=== PATIENT | female | born 1960 | race Caucasian/White ===

== ENCOUNTER → 2023-11-22 15:17 | Outpatient (REF) | payer OTHER, SELFPAY | LOC: RAD 15:17 | PROVIDERS: ATTENDING PHYSICIAN Psychiatry & Neurology Neurology; FAMILY PHYSICIAN Internal Medicine | DX: R41.3 Other amnesia (principal) | CPT/HCPCS: 93880 ==

== ENCOUNTER → 2024-08-08 06:42 | Outpatient (REF) | payer OTHER, SELFPAY | LOC: RCS 06:42 | PROVIDERS: ATTENDING PHYSICIAN Internal Medicine Cardiovascular Disease; FAMILY PHYSICIAN Internal Medicine | DX: I47.10 Supraventricular tachycardia, unspecified (principal); I65.23 Occlusion and stenosis of bilateral carotid arteries; Z79.899 Other long term (current) drug therapy; R00.2 Palpitations; R07.89 Other chest pain | CPT/HCPCS: 78452; 93017; A9500 ==

== ENCOUNTER → 2024-08-29 10:41 | Outpatient (REF) | payer OTHER, SELFPAY | LOC: WDC 10:41 | PROVIDERS: ATTENDING PHYSICIAN Internal Medicine; REFERRING PHYSICIAN Internal Medicine Cardiovascular Disease | DX: I47.10 Supraventricular tachycardia, unspecified (principal); I65.23 Occlusion and stenosis of bilateral carotid arteries; Z79.899 Other long term (current) drug therapy; R00.2 Palpitations; R07.89 Other chest pain; Z12.31 Encounter for screening mammogram for malignant neoplasm of breast | CPT/HCPCS: 77080; 93306 ==

== ENCOUNTER → 2024-09-12 08:32 | Outpatient (REF) | payer OTHER, SELFPAY | LOC: WDC 08:32 | PROVIDERS: ATTENDING PHYSICIAN Internal Medicine | DX: R92.8 Other abnormal and inconclusive findings on diagnostic imaging of breast (principal) | CPT/HCPCS: 76642 ==

== ENCOUNTER 2025-02-09 09:59 | Day surgery (SDC) | payer OTHER, SELFPAY ==
[2025-02-02 09:52] VITALS: BMI 22.8
--- NOTE | 2025-02-02 10:16 | HPS.HSE ---
Family Physician
-
Family Physician: Nemesio Jordan
Chief Complaint
-
Supraventricular tachycardia.
History of Present Illness
The patient is a 64 year old female presenting today for supraventricular tachycardia. She reports frequent palpitations associated with this diagnosis. These palpitations occur daily for about 20-40 minutes. She previously underwent two
ablations in 2000 and 2005 for right atrial tachycardia. Her arrhythmia, however, was overall difficult to eliminate through ablation given its close proximity to the phrenic nerve. She is on current pharmacological therapy with Diltiazem and
Flecainide. She notes that her palpitations associated with her arrhythmia greatly interfere with her activities of daily living and overall impact her quality of life. She is interested in pursuing with an EP study and SVT ablation for further
arrhythmia management. Given new technology over the last several years, she likely would benefit from an updated ablation. She denies any current complaints today such as chest pain, shortness of breath, nausea, vomiting, diarrhea, lightheadedness,
dizziness, cough, sore throat, or fever.
Medical History
Past Medical History
Past Medical History: Reports Other
Additional Past Medical History:
1. Supraventricular tachycardia, pharmacological therapy with Flecainide and Diltiazem.
2. Right atrial tachycardia, status post ablation 2000 and 2005.
3. Hypertension with history of hypertensive urgency 1999.
4. Hypercholesterolemia.
5. Non-obstructive bilateral carotid atherosclerosis.
6. Mild mitral regurgitation.
7. Hemorrhoids.
8. Lumbar degenerative disc disease.
9. Osteopenia.
10. Anxiety/depression.
11. History of tobacco abuse.
Past Surgical History: Reports Other
Additional Past Surgical History:
1. Right atrial tachycardia ablation x2.
2. Lumbar discectomy and fusion.
3. Bilateral carpal tunnel release.
4. Bilateral bunionectomy.
5. Hysterectomy.
6. Hysteroscopy, endometrial ablation.
7. Hysteroscopy, D&C.
8. Right breast biopsy (benign).
9. Fissurectomy.
10. Colonoscopy x2.
Social History
Tobacco: Former Smoker (She is a former 'few' cigarette per day smoker who quit tobacco products altogether a 'few years ago.')
Alcohol: Other (Social use reported. )
Personal:
Living: Other (She lives with her spouse in a 2 story home. )
Family History
Family History: Not pertinent
Allergies / Home Medications
Allergy/Medication List:
Home medications:
1. Aspirin 81 mg p.o. daily.
2. Atorvastatin 20 mg p.o. daily.
3. Bupropion 150 mg p.o. daily.
4. Cholecalciferol 50 mcg p.o. daily.
5. Diltiazem HCl 30 mg p.o. twice a day.
6. Estradiol 1 patch transdermal on Sundays.
7. Flecainide 50 mg p.o. every 12 hours.
8. Multivitamin 1 tablet p.o. daily.
9. Progesterone 200 mg p.o. daily.
Allergies: Shellfish.
Review of Systems
-
A 12 point ROS was completed and negative except as noted: Yes
Physical Exam
Vital Signs
Blood pressure 139/86. Heart rate 63. Respirations 18. Pulse ox 99% on room air.
Height 5 feet, 5 inches. Weight 62.2 kg. BMI 22.8.
Physical Exam
General: Well Developed, Well Nourished and No Apparent Distress
HEENT: NormoCephalic, Moist mucous membranes, Atraumatic and PERRLA
Respiratory: Clear
Cardiac: Regular Rhythm
GI: Soft, Non Tender and Non Distended
Musculoskeletal: No Edema and Normal Gait & Station
Skin: Warm and Dry
Neuro: AO x 3 and Nonfocal/grossly intact
Laboratory Results
-
DIAGNOSTIC STUDIES as of 02/02/2025: White blood cell count 7.1. Hemoglobin 13.8. Platelet count 333,000. Sodium 143. Potassium 4.2. BUN 14. Creatinine 0.7.
Glucose 95. Calcium 9.6. Magnesium 2.0. AST 26. ALT 23. Albumin 4.4.
EKG 02/02/2025: Sinus bradycardia.
Echocardiogram 08/29/2024: Ejection fraction of 65-70%. Mild mitral regurgitation. Trace tricuspid regurgitation with estimated pulmonary artery systolic pressures of 25-30 mmHg. No prior echocardiogram for comparison.
Stress test 08/08/2024: Normal sestamibi perfusion imaging. No evidence of ischemia The exercise tolerance is above average for given age and gender. Stress Risk is low, annual cardiac event rate less then 1%. (Cross Treadmill Score = 10). Systolic
function is normal. The ejection fraction is 71%.
Impression/Plan
-
IMPRESSION/PLAN:
1. Supraventricular tachycardia: The patient is in need of an EP study and SVT ablation with Dr. Sachin Hope on 02/09/2025. The benefits and risks of the procedure have been explained to the patient. The patient understands these risks and
wishes to proceed. She is aware to hold her Flecainide and Diltiazem 3 days prior to her procedure.
[2025-02-02 10:17] LABS: % Basophils 0.6 % (0-2); % Eosinophils 0.8 % (0-6); % Immature Granulocytes 0.3 % (0-0.5); % Lymphocytes 25.1 % (20.5-51.1); % Monocytes 6.1 % (1.7-9.3); % Neutrophils 67.1 % (42.2-75.2); Absolute Eosinophils 0.1 10^3/uL (0-0.7); Absolute Lymphocytes 1.8 10^3/uL (1.2-3.4); Absolute Monocytes 0.4 10^3/uL (0.1-0.6); Absolute Neutrophils 4.8 10^3/uL (1.4-6.5); Hematocrit 41.5 % (37.0-47.0); Hemoglobin 13.8 g/dL (12.0-16.0); Mean Corp Hgb Conc. 33.3 g/dL (33.0-37.0); Mean Corpuscular Hgb 29.7 pg (27.0-31.0); Mean Corpuscular Volume 89.2 fL (81.0-99.0); Mean Platelet Volume 9.9 fL (7.4-10.4); Nucleated Red Blood Cells % 0 %; Platelet Count 333 10^3/uL (130-400); Red Blood Cell Count 4.65 10^6/uL (4.20-5.40); Red Cell Dist. Width 13.3 % (11.5-14.5); White Blood Cell Count 7.1 10^3/uL (4.8-10.8)
[2025-02-02 10:53] LABS: ALT (SGPT) 23 U/L (0-35); AST (SGOT) 26 U/L (14-36); Albumin 4.4 g/dl (3.5-5.0); Alkaline Phosphatase 45 U/L (38-126); Blood Urea Nitrogen 14 mg/dl (7-17); Calcium 9.6 mg/dl (8.4-10.2); Carbon Dioxide 27 mmol/L (22-30); Chloride 107 mmol/L (98-107); Estimated Creatinine Clearance 74 ml/min; Glucose 95 mg/dl (70-99); Potassium 4.2 mmol/L (3.5-5.1); Sodium 143 mmol/L (135-145); Total Bilirubin 0.8 mg/dl (0.2-1.3); Total Protein 6.7 g/dl (6.3-8.2); eGFR > 60.00
[2025-02-09] VITALS (15 sets, daily range): BP systolic 102–167; BP diastolic 77–90; BMI 23.4
--- NOTE | 2025-02-09 13:54 | ITS.CL.ABL ---
Granite Sandblaster Apprentice - Ablation
Ablation
Procedure Report:
ELECTROPHYSIOLOGIC STUDY AND POSSIBLE ABLATION
DATE: February 09, 2025
Primary Care Provider: Dr. Nemesio Jordan
INDICATION:
Symptomatic recurrent SVT (atrial tachycardia)
Paroxysmal
HISTORY: See H and P.
Symptomatic SVT (Atrial Tachycardia), poorly controlled with prior ablation attempts as well as attempted medical therapy (Cardizem CD as well as flecainide).
She initially was seen at [place] in 2000 and underwent EP study which was notable for atypical AVNRT however Ablation was unsuccessful. Beta-haseeb led to fatigue and did not resolve her symptoms. Patient was placed on flecainide.
Due to ongoing symptoms she underwent EP study here at [place] 08/2005. EPS demonstrated a right atrial tachycardia from the donta terminalis in very close proximity to the phrenic nerve. This limited RF energy applications and she quickly
recurred with her atrial tachycardia. We discussed moving forward with pulsed electric field energy which carries a very low risk of phrenic nerve injury.�
PRESENTING RHYTHM: SR
HISTORY: See H and P.
Symptomatic AF, poorly controlled with attempted medical therapy.
ANTIARRHYTHMIC DRUG: Flecainide 50 mg twice daily and Cardizem HCl 30 mg twice daily
'TIME-OUT': called and confirmed.
SEDATION/ANESTHESIA: provided via the anesthesia department using general anesthesia.
PROCEDURE:
Ultrasound Guidance with real-time visualization of needle insertion and vessel patency performed by al for femoral venous Vascular Access.
Under real-time US guidance, the needle was advanced with negative pressure into the vein. The needle was seen entering the vessel lumen with a good return of dark red flow, the syringe was removed, non-pulsatile, dark red blood low was noted and
the wire was passed without difficulty, then the needle was removed. US confirmed the wire was in the vein, not going into an artery,
Images were taken and saved for the patient's permanent record. Imaging findings typical femoral venous anatomy. Direct visualization of needle puncture into the femoral vein was observed and recorded.
A decapolar CS catheter was placed within the CS for mapping and pacing.
Heparin bolus and infusion to target ACT at 300 -350 seconds was administered.
The Affera multipolar mapping/ablation Sphere-9 catheter was positioned through the Agilis deflectable sheath
Sinus rhythm mapping was performed. Additionally mapping of short bursts of her clinical atrial tachycardia at cycle length 500 ms was performed. This mapped to the donta terminalis at a mid to high location. Programmed electrical stimulation
failed to induce any sustained arrhythmias.
Isoproterenol infusion was then begun. There were several further spontaneous short runs of atrial tachycardia at a faster cycle length of 480 ms with identical activation sequence which was mapped to the same mid to high donta terminalis
location. At this location pacing captures phrenic nerve.
Pulsed electric field energy was delivered to the target. Several pulsed field energy deliveries in and around the targeted area were given. These all resulted in phrenic nerve capture.
Post ablation programmed electrical stimulation with burst atrial pacing as well as delivery of atrial decremental extrastimuli down to atrial ERP failed to induce any arrhythmias. Additionally there were no longer any spontaneous runs of atrial
tachycardia or even clinical PACs.
Vascade vascular closure devices were used for vascular hemostasis.
COMPLICATIONS:
None
SUMMARY:
- Mapping and ablation of SVT (right atrial donta terminalis tachycardia)
- EPS with coronary sinus catheter/mapping
- EPS with drug infusion
- 3-D Electroanatomical Mapping
- Ultrasound guidance for vascular access
Post ablation, I discussed today's findings and results with the patient's , Darwin
RECOMMENDATIONS:
- Observe in monitored bed.
- Discontinue flecainide, discontinue Cardizem.
- Office visit with me has been scheduled for June 12, 2025
Copy to:
Dr. Nemesio Jordan
[2025-02-09 15:02] LABS: ACT-LR - POC 248 Seconds (116-155)
[2025-02-09 15:21] LABS: ACT-LR - POC 276 Seconds (116-155)
[2025-02-09 15:43] LABS: ACT-LR - POC 289 Seconds (116-155)
--- NOTE | 2025-02-09 18:10 | PTCARENOTE ---
Dr Hope at pt bedside speaking to pt and pt's .
== END 2025-02-09 19:00 | disposition home or self-care (01) ==
LOC: CATH 09:59
PROVIDERS: ATTENDING PHYSICIAN Internal Medicine Cardiovascular Disease; FAMILY PHYSICIAN Internal Medicine; OTHER PHYSICIAN Internal Medicine Cardiovascular Disease
DX: I47.10 Supraventricular tachycardia, unspecified (principal); I10 Essential (primary) hypertension; Z90.710 Acquired absence of both cervix and uterus; Z98.890 Other specified postprocedural states; E78.00 Pure hypercholesterolemia, unspecified; I34.0 Nonrheumatic mitral (valve) insufficiency; K64.9 Unspecified hemorrhoids; M51.369 Other intervertebral disc degeneration, lumbar region without mention of lumbar back pain or lower extremity pain; M85.80 Other specified disorders of bone density and structure, unspecified site; F41.9 Anxiety disorder, unspecified; F32.A Depression, unspecified; Z87.891 Personal history of nicotine dependence; Z79.82 Long term (current) use of aspirin; Z79.899 Other long term (current) drug therapy; Z79.890 Hormone replacement therapy
CPT/HCPCS: C1766; C1730; C1892; C1733; C1894; 36415; 80053; 83735; 85025; 85347; 93005; 93623; 93653; C1760; C1769

== ENCOUNTER 2025-03-08 16:33 | Emergency (ER) | payer OTHER, SELFPAY ==
[2025-03-08 16:35] VITALS: BP 194/110
[2025-03-08 16:58] LABS: % Basophils 0.4 % (0-2); % Eosinophils 1.5 % (0-6); % Immature Granulocytes 0.4 % (0-0.5); % Lymphocytes 27.6 % (20.5-51.1); % Monocytes 8.9 % (1.7-9.3); % Neutrophils 61.2 % (42.2-75.2); Absolute Eosinophils 0.1 10^3/uL (0-0.7); Absolute Lymphocytes 2.6 10^3/uL (1.2-3.4); Absolute Monocytes 0.8 10^3/uL (0.1-0.6); Absolute Neutrophils 5.8 10^3/uL (1.4-6.5); Hematocrit 37.8 % (37.0-47.0); Hemoglobin 12.7 g/dL (12.0-16.0); Mean Corp Hgb Conc. 33.6 g/dL (33.0-37.0); Mean Corpuscular Hgb 29.7 pg (27.0-31.0); Mean Corpuscular Volume 88.5 fL (81.0-99.0); Mean Platelet Volume 10.2 fL (7.4-10.4); Nucleated Red Blood Cells % 0 %; Platelet Count 310 10^3/uL (130-400); Red Blood Cell Count 4.27 10^6/uL (4.20-5.40); Red Cell Dist. Width 13.3 % (11.5-14.5); White Blood Cell Count 9.4 10^3/uL (4.8-10.8)
[2025-03-08 17:09] LABS: ALT (SGPT) 25 U/L (0-35); AST (SGOT) 28 U/L (14-36); Albumin 4.5 g/dl (3.5-5.0); Alkaline Phosphatase 49 U/L (38-126); Blood Urea Nitrogen 16 mg/dl (7-17); Calcium 9.4 mg/dl (8.4-10.2); Carbon Dioxide 27 mmol/L (22-30); Chloride 111 mmol/L (98-107); Glucose 88 mg/dl (70-99); Potassium 3.9 mmol/L (3.5-5.1); Sodium 140 mmol/L (135-145); Total Bilirubin 0.6 mg/dl (0.2-1.3); Total Protein 6.9 g/dl (6.3-8.2); eGFR > 60.00
[2025-03-08 17:21] LABS: Troponin I < 0.012 ng/ml
[2025-03-08 18:52] VITALS: BP 136/88
[2025-03-08 19:00] VITALS: BP 142/81
[2025-03-08 19:27] VITALS: BMI 24.6
--- NOTE | 2025-03-08 20:12 | ED.GENMED ---
History of Present Illness
General
Chief Complaint: Cardiac Symptoms
Time Seen by Provider: 03/08/25 19:01
History of Present Illness
History of Present Illness:
65-year-old female presents emergency department for evaluation of frequent bouts of palpitations tachycardia occurring over the past several days. She is just over 3 weeks status post SVT ablation and has been holding her rate control since that
time. She states the symptoms are comparable to her past bouts of SVT. Reporting mild chest discomfort as well, no shortness of breath or fevers
Past History
Past History
ED Past Medical History: HTN and Hypercholesterolemia
ED Past Surgical History: Gynecological (hysterectomy) and Orthopedic (bunionectomy, back surgery.)
Social History
Tobacco: Non-smoker
Alcohol: Occasional
Drug: None
Personal:
Living: with family
Employment: Employed
Review of Systems
Review of Systems
Allergies reviewed?: Yes
All Other Systems: ROS reviewed and negative except as documented in HPI and ROS
Phy Exam
Physical Exam
Physical Exam:
GEN: Well appearing, NAD, WDWN
HEENT: Oral mucosa moist, no scleral icterus
Cardiac: Regular rate
Lung: No respiratory distress, no tachypnea
MSK: No gross deformity or injuries
Skin: Good color, no pallor or jaundice, no rashes
Neuro: AO x3, moves all extremities freely
Psych: Calm, cooperative
Course
Orders/Labs/Results
Orders:
Orders
03/08/25 16:38
Electrocardiogram (*1) Urgent
Reason for Study: Bradycardia / Tachycardia
EKG- Treatment ONCE
03/08/25 16:49
Complete Blood Count/With Diff Urgent
Comprehensive Metabolic Panel Urgent
Troponin I Urgent
03/08/25 20:11
Diltiazem [Cardizem] 30 mg PO NOW STA
Abnormal Lab Results
03/08/25
16:49
Absolute Monos (auto) 0.8 H 10^3/uL
(0.1-0.6)
Chloride 111 H mmol/L
(98-107)
03/08/25 16:49
03/08/25 16:49
Vital Signs
Initial and Last Documented VS:
Initial Vital Signs
Temp Pulse Resp BP Pulse Ox
98.0 F 119 18 194/110 98
03/08/25 16:35 03/08/25 16:35 03/08/25 16:35 03/08/25 16:35 03/08/25 16:35
Last Documented Vital Signs
Temp Pulse Resp BP Pulse Ox
98.0 F 69 22 142/81 98
03/08/25 16:35 03/08/25 20:15 03/08/25 20:15 03/08/25 19:00 03/08/25 20:15
MDM/Problems Addressed
MDM/Problems Addressed:
Patient noted to be having frequent bouts of PAT on telemetry, discussed with cardiology and will restart her on diltiazem
*Critical Care Note
Total Time (30-74mins, 75-104mins- exclusive of procedures): Not Applicable
ED Attending Note
-
Portions of this chart may have been created with voice recognition software.� Occasional wrong word or��sound alike� substitutions may have occurred due to the inherent limitations of voice recognition software.
Discharge Plan
Departure
Patient Disposition: Home (Routine Discharge)
Date of Disposition: 03/08/25
Time of Disposition: 20:12
Patient with high blood pressure during this ER visit?: No
Discharge Problem:
Atrial paroxysmal tachycardia
Instructions: Tachycardia
Prescriptions:
New
diltiazem HCl 30 mg tablet
30 mg PO BID Qty: 60 0RF
No Action
multivitamin Tablet
1 tab PO DAILY
atorvastatin 20 mg Tablet
20 mg PO DAILY
estradiol 0.05 mg/24 hr Patch Weekly
1 patch TRANSDERMAL WHITE
aspirin 81 mg Tablet
81 mg PO DAILY
bupropion HCl [Wellbutrin XL] 150 mg Tablet Extended Release 24 Hr
150 mg PO DAILY
progesterone micronized 200 mg Capsule
200 mg PO HS
cholecalciferol (vitamin D3) 50 mcg (2,000 unit) Tablet
50 mcg PO DAILY
Referrals:
Nemesio Jordan DO [Family Provider, Internal Medicine]
Karla Hope MD [Active, Cardiology]
Interventions
Interventions:
*Risk Screen - Suicide Last Done: 03/08/25 16:35
*General Assessment Last Done: 03/08/25 19:27
*Neglect/Abuse Screening Last Done: 03/08/25 16:35
*ED- Fall Risk Assessment Last Done: 03/08/25 19:27
*ED COVID-19 Vaccine History Last Done: 03/08/25 19:27
*Nursing Disposition Last Done: 03/08/25 20:45
ED- Pulmonary Assessment Last Done: 03/08/25 19:27
ED- Cardiac Assessment Last Done: 03/08/25 19:27
Discharge Date and Time
Discharge Date/Time: 03/08/25 21:10
Print Language: BRITISH
== END 2025-03-08 21:10 | disposition home or self-care (01) ==
LOC: EMR 16:33
PROVIDERS: EMERGENCY PHYSICIAN Student in an Organized Health Care Education/Training Program; FAMILY PHYSICIAN Internal Medicine
DX: I47.19 Other supraventricular tachycardia (principal); I10 Essential (primary) hypertension; E78.00 Pure hypercholesterolemia, unspecified
CPT/HCPCS: 99284; 80053; 84484; 85025; 93005

== ENCOUNTER 2025-03-18 09:00 | Inpatient (IN) | payer OTHER, SELFPAY ==
[2025-03-18 09:56] VITALS: BP 147/88
--- NOTE | 2025-03-18 10:40 | W.PN.CARDCBS ---
Addendum entered and electronically signed by Kaden Ruggiero DO 03/18/25 17:29:
I saw and examined the patient.
The Privacy Manager's note was reviewed and I agree with the note.
Comment:
Plan:
Direct admit for Sotalol
EP note reviewed from yesterday
Recent echo with preserved EF
Remains on outpt ASA
Original Note:
Today's Communication / Plan
-
Start sotalol 80 mg BID
Impression / Plan
-
PCP: Dr. Jordan
Cardiology: Dr. Karla Hope
EP: Dr. Sachin Hope
Impression:
Direct admission for sotalol loading 03/18/2025
Palpitations
Right atrial tachycardia
EP study at [facility] 2000
EP study at [facility], right atrial tachycardia tracking near the phrenic nerve 2004
HTN
Carotid disease, nonobstructive
Hyperlipidemia
Echo 08/29/2024: EF 65 to 70%, mild MR, no AAS, trace TR
Plan:
- Patient was seen in the office 03/17/2025 for recurrent right atrial tachycardia. Right atrial tachycardia previously studied with EP study at [facility] in 2000 and then most recent EP study was at [facility] in 2004 and it was felt that the right atrial
tachycardia tracked near her phrenic nerve. Patient had increasing palpitations and was seen in the office urgently on 03/17/2025. Patient was taking flecainide and was instructed to stop taking flecainide and made a plan for sotalol 80 mg twice
daily admission starting 03/18/2025.
-All admission orders entered by me. Labs ordered and reviewed by me, stable renal function and electrolytes.
-ECG reviewed by me on admission is read as sinus tachycardia, but might also be her known right atrial tachycardia and then ECG 2 hours after first dose of sotalol also read by me is sinus rhythm with PACs and a QTc is 467 ms
-Reviewed sotalol loading and plans for ECG 2 hours after each dose with patient.
Progress Note - Inhalation Therapy Aide
Subjective
Date of Service: March 18, 2025
She has a headache and feels palpitations
Objective
Vital Signs and I&O:
Vital Signs
Temp Pulse Resp BP Pulse Ox
98.9 F 117 18 147/88 98
03/18/25 09:56 03/18/25 09:56 03/18/25 09:56 03/18/25 09:56 03/18/25 09:56
Vital Signs
Temp Pulse Resp BP Pulse Ox
98.9 F 117 18 147/88 98
03/18/25 09:56 03/18/25 09:56 03/18/25 09:56 03/18/25 09:56 03/18/25 09:56
Physical Exam
Physical Exam
GEN: NAD. AAOx3
HEENT: EOMI, MMM
LUNGS: RA. AAO x3
CV: Atach on tele. Reg, S1/S2, no murmur
ABD: ND
EXT: No edema B/L
NEURO: Gross non-focal
SKIN: No rash
--- NOTE | 2025-03-18 11:02 | CM ---
Patient seen at bedside
IA completed
Lives in 2 story home with , 4 steps to enter, flight to bed/bath
PLOF: independent
Denies DME
Denies VN/Rehab
Denies insecurities
PCP: Nmeesio Jordan
Pharmacy: [facility]
PLAN: Home, no needs anticipated, when medically stable.
[2025-03-18 11:03] VITALS: BMI 23.1
[2025-03-18 11:08] LABS: Hematocrit 41.6 % (37.0-47.0); Hemoglobin 13.9 g/dL (12.0-16.0); Mean Corp Hgb Conc. 33.4 g/dL (33.0-37.0); Mean Corpuscular Volume 89.7 fL (81.0-99.0); Mean Platelet Volume 9.9 fL (7.4-10.4); Platelet Count 287 10^3/uL (130-400); Red Blood Cell Count 4.64 10^6/uL (4.20-5.40); Red Cell Dist. Width 13.6 % (11.5-14.5); White Blood Cell Count 15.8 10^3/uL (4.8-10.8)
[2025-03-18 11:33] LABS: ALT (SGPT) 19 U/L (0-35); AST (SGOT) 23 U/L (14-36); Albumin 4.6 g/dl (3.5-5.0); Alkaline Phosphatase 52 U/L (38-126); Blood Urea Nitrogen 16 mg/dl (7-17); Calcium 9.9 mg/dl (8.4-10.2); Carbon Dioxide 27 mmol/L (22-30); Chloride 108 mmol/L (98-107); Estimated Creatinine Clearance 70 ml/min; Glucose 101 mg/dl (70-99); Magnesium 2.1 mg/dl (1.6-2.3); Potassium 4.7 mmol/L (3.5-5.1); Sodium 141 mmol/L (135-145); Total Bilirubin 0.7 mg/dl (0.2-1.3); Total Protein 7.2 g/dl (6.3-8.2); eGFR > 60.00
[2025-03-18] MEDS: BETAPACE 80 MG PO ×2 (12:33→23:00)
[2025-03-18] MEDS: TYLENOL 650 MG PO ×2 (12:38→20:18)
[2025-03-18 15:27] VITALS: BP 117/62
[2025-03-18] MEDS: LIPITOR PO ×2 (17:13→17:17)
[2025-03-18 19:30] VITALS: BP 143/89
[2025-03-18 23:23] VITALS: BP 128/82
[2025-03-19] VITALS (8 sets, daily range): BP systolic 93–121; BP diastolic 47–76
[2025-03-19] MEDS: TYLENOL 650 MG PO ×2 (01:12→23:46)
[2025-03-19 07:10] LABS: Blood Urea Nitrogen 11 mg/dl (7-17); Calcium 9.5 mg/dl (8.4-10.2); Carbon Dioxide 25 mmol/L (22-30); Chloride 110 mmol/L (98-107); Estimated Creatinine Clearance 70 ml/min; Glucose 95 mg/dl (70-99); Potassium 4.1 mmol/L (3.5-5.1); Sodium 140 mmol/L (135-145); eGFR > 60.00
[2025-03-19] MEDS: LOW STRENGTH ASPIRIN 81 MG PO (07:36)
[2025-03-19] MEDS: WELLBUTRIN XL (24 hour extended release) 150 MG PO (07:36)
[2025-03-19] MEDS: BETAPACE 80 MG PO ×2 (10:33→21:08)
--- NOTE | 2025-03-19 11:40 | CM ---
Patient seen at bedside
Dx: Sotalol loading
PLAN: Home, no needs anticipated, when medically stable.
--- NOTE | 2025-03-19 13:46 | W.PN.CARDCBS ---
Addendum entered and electronically signed by Kaden Ruggiero DO 03/19/25 18:07:
I saw and examined the patient.
The B[employer]er Operators Supervisor's note was reviewed and I agree with the note.
Comment:
Plan:
Continue sotalol load 80 mg twice daily.
Fifth dose tomorrow.
Continue aspirin for Right atrial tachycardia
Likely d/c tomorrow
Follow up with Dr Aaron Hope
Original Note:
Today's Communication / Plan
-
Cont sotalol 80 mg BID
5th dose scheduled for Sunday
Impression / Plan
-
PCP: Dr. Jordan
Cardiology: Dr. Karla Hope
EP: Dr. Sachin Hope
Impression:
Direct admission for sotalol loading 03/18/2025
Spontaneous conversion to SR 03/18/2025 with ongoing breakthrough of right atrial tachycardia
Palpitations
Right atrial tachycardia
EP study at [facility] 2000
EP study at [facility], right atrial tachycardia tracking near the phrenic nerve 2004
HTN
Carotid disease, nonobstructive
Hyperlipidemia
Echo 08/29/2024: EF 65 to 70%, mild MR, no AAS, trace TR
Plan:
-Telemetry reviewed by me, patient spontaneously converted to SR on 03/18/2025, but continues to have frequent breakthroughs of right atrial tachycardia that are symptomatic
-Third dose of sotalol 80 mg BID given 03/19/2025 AM and appears to be NSR with QTc 466 ms
-Fifth dose of sotalol scheduled for 03/20/2025 AM and if patient remains in SR with stable QTc she can be discharged to home
-Patient complains of MILLER that was unresponsive to Tylenol, we will try a dose of Toradol, ordered by me
HPI: Patient was seen in the office 03/17/2025 for recurrent right atrial tachycardia. Right atrial tachycardia previously studied with EP study at [facility] in 2000 and then most recent EP study was at [facility] in 2004 and it was felt that the right atrial
tachycardia tracked near her phrenic nerve. Patient had increasing palpitations and was seen in the office urgently on 03/17/2025. Patient was taking flecainide and was instructed to stop taking flecainide and made a plan for sotalol 80 mg twice
daily admission starting 03/18/2025.
Progress Note - Earth Science Technician
Subjective
Date of Service: March 19, 2025
Has a MILLER, ongoing palpitations
Objective
Labs:
03/18/25 10:59
03/19/25 06:24
Labs
Hgb 13.9 g/dL (12.0-16.0) 03/18/25 10:59
Hct 41.6 % (37.0-47.0) 03/18/25 10:59
Plt Count 287 10^3/uL (130-400) 03/18/25 10:59
Sodium 140 mmol/L (135-145) 03/19/25 06:24
Potassium 4.1 mmol/L (3.5-5.1) 03/19/25 06:24
BUN 11 mg/dl (7-17) 03/19/25 06:24
Creatinine 0.7 mg/dL (0.6-1.0) 03/19/25 06:24
Glucose 95 mg/dl (70-99) 03/19/25 06:24
Vital Signs and I&O:
Vital Signs
Temp Pulse Resp BP Pulse Ox
98.7 F 67 19 121/74 98
03/19/25 11:00 03/19/25 11:00 03/19/25 11:00 03/19/25 11:00 03/19/25 11:00
Vital Signs
Temp Pulse Resp BP Pulse Ox
98.7 F 67 19 121/74 98
03/19/25 11:00 03/19/25 11:00 03/19/25 11:00 03/19/25 11:00 03/19/25 11:00
Intake & Output
03/17/25 03/18/25 03/19/25 03/20/25
06:59 06:59 06:59 06:59
Intake Total 1440 / 1440
Balance 1440 / 1440
Physical Exam
Physical Exam
GEN: NAD. AAOx3
LUNGS: RA.
CV: SR
[2025-03-19] MEDS: TORADOL 15 MG IV (13:54)
[2025-03-19] MEDS: LIPITOR 20 MG PO (17:30)
[2025-03-20 03:32] VITALS: BP 94/61
[2025-03-20 06:51] LABS: Blood Urea Nitrogen 19 mg/dl (7-17); Calcium 9.3 mg/dl (8.4-10.2); Carbon Dioxide 29 mmol/L (22-30); Chloride 109 mmol/L (98-107); Estimated Creatinine Clearance 61 ml/min; Glucose 93 mg/dl (70-99); Potassium 4.3 mmol/L (3.5-5.1); Sodium 142 mmol/L (135-145); eGFR > 60.00
[2025-03-20 07:00] VITALS: BP 112/89
[2025-03-20] MEDS: LOW STRENGTH ASPIRIN 81 MG PO (07:58)
[2025-03-20] MEDS: WELLBUTRIN XL (24 hour extended release) 150 MG PO (07:58)
[2025-03-20] MEDS: BETAPACE 80 MG PO (08:30)
[2025-03-20 11:00] VITALS: BP 108/54
--- NOTE | 2025-03-20 11:04 | CM ---
Addendum entered by Celi Monreal 03/20/25 15:11:
Patient discharge today to home, no needs
drove self
Original Note:
Patient seen at bedside
n/a IMM
per note likely d/c tomorrow
PLAN: Home, no needs
drove self
--- NOTE | 2025-03-20 12:55 | PTCARENOTE ---
patient's only complaint is dry cough. tolerating activity, independent with ambulation in room, vss, will continue to monitor.
--- NOTE | 2025-03-20 13:34 | W.PN.CARDCBS ---
Addendum entered and electronically signed by Sayda Hull PA-C 03/20/25 16:26:
[id number]
Addendum entered and electronically signed by Jigar Kelsey MD 03/20/25 15:00:
I saw and examined the patient.
The FINGERNAIL FORMER or PA's note was reviewed and I agree with the note.
Comment: General: Well developed, well nourished in NAD.
Neck: Supple, no JVD, HJR, carotids +2 B/L, no bruits bilaterally.
Heart: Non displaced PMI, RRR, no murmurs, No S3, S4, no rubs.
Lungs: Clear to auscultation
Extremities: No clubbing, cyanosis or edema bilaterally.
Neuro: Grossly nonfocal, awake, alert and oriented x3.
Stable cardiology status for discharge. QT interval okay. Follow-up arranged.
Original Note:
Today's Communication / Plan
-
OK for discharge.
Continue sotalol 80mg BID
Follow up arranged.
Impression / Plan
-
PCP: Dr. Jordan
Cardiology: Dr. Karla Hope
EP: Dr. Sachin Hope
Impression:
Direct admission for sotalol loading 03/18/2025
Spontaneous conversion to SR 03/18/2025 with ongoing breakthrough of right atrial tachycardia
Palpitations
Right atrial tachycardia
EP study at [facility] 2000
EP study at [facility], right atrial tachycardia tracking near the phrenic nerve 2004
HTN
Carotid disease, nonobstructive
Hyperlipidemia
Echo 08/29/2024: EF 65 to 70%, mild MR, no , trace TR
Plan:
-Presented for sotalol loading due to recurrent symptomatic atrial tachycardia.
-Continue sotalol 80mg BID. In SR, EKG stable after 5th dose in AM 03/20. QTc 449 ms.
-BP and HR stable.
-OK for discharge.
-Continue aspirin 81mg daily, lipitor
-Follow up arranged w/ Dr. Walker
HPI: Patient was seen in the office 03/17/2025 for recurrent right atrial tachycardia. Right atrial tachycardia previously studied with EP study at [facility] in 2000 and then most recent EP study was at [facility] in 2004 and it was felt that the right atrial
tachycardia tracked near her phrenic nerve. Patient had increasing palpitations and was seen in the office urgently on 03/17/2025. Patient was taking flecainide and was instructed to stop taking flecainide and made a plan for sotalol 80 mg twice
daily admission starting 03/18/2025.
Progress Note - Conference Translator
Subjective
Date of Service: March 20, 2025
Objective
Labs:
03/18/25 10:59
03/20/25 06:04
Labs
Hgb 13.9 g/dL (12.0-16.0) 03/18/25 10:59
Hct 41.6 % (37.0-47.0) 03/18/25 10:59
Plt Count 287 10^3/uL (130-400) 03/18/25 10:59
Sodium 142 mmol/L (135-145) 03/20/25 06:04
Potassium 4.3 mmol/L (3.5-5.1) 03/20/25 06:04
BUN 19 mg/dl (7-17) H 03/20/25 06:04
Creatinine 0.8 mg/dL (0.6-1.0) 03/20/25 06:04
Glucose 93 mg/dl (70-99) 03/20/25 06:04
Vital Signs and I&O:
Vital Signs
Temp Pulse Resp BP Pulse Ox
97.9 F 80 20 108/54 98
03/20/25 11:00 03/20/25 11:00 03/20/25 11:00 03/20/25 11:00 03/20/25 11:00
Vital Signs
Temp Pulse Resp BP Pulse Ox
97.9 F 80 20 108/54 98
03/20/25 11:00 03/20/25 11:00 03/20/25 11:00 03/20/25 11:00 03/20/25 11:00
Intake & Output
03/18/25 03/19/25 03/20/25 03/21/25
06:59 06:59 06:59 06:59
Intake Total 1440 / 1440 1919
Balance 1440 / 1440 1919
--- NOTE | 2025-03-20 14:21 | W.DS.TRANS ---
DC Summary - Director Of Operations Support
-
Discharge Instructions:
Discharge Diagnosis/Procedures Atrial tachycardia, Sotalol loading
Diet Regular
Activity As tolerated
Driving Restrictions As prior to admission
Bathing Restrictions OK to Shower
Instructions:
Stand-Alone Forms:
Changes to Home Medications: Yes
Discharge Medications:
DC Medications w/original date entered in [employer]
aspirin 81 mg tablet 81 mg PO DAILY 01/28/25
atorvastatin 20 mg tablet 20 mg PO DAILY 01/28/25
bupropion HCl 150 mg 24 hr tablet, extended release (Wellbutrin XL) 150 mg PO DAILY 01/28/25
estradiol 0.05 mg/24 hr weekly transdermal patch 1 patch transdermal WHITE 01/28/25
multivitamin 1 tab PO DAILY 01/28/25
cholecalciferol (vitamin D3) 50 mcg (2,000 unit) tablet 50 mcg PO DAILY 02/02/25
progesterone micronized 200 mg capsule 200 mg PO HS 02/02/25
diltiazem HCl 30 mg tablet 30 mg PO BID #60 tabs 03/08/25
sotalol 80 mg tablet 80 mg PO BID #60 tabs 03/20/25
Home Medication Changes
Sotalol is new
Pending Results: No
[2025-03-20 15:01] VITALS: BP 126/71
--- NOTE | 2025-03-20 16:20 | W.DS.TRANS ---
DC Summary - [employer] [facility]
-
Discharge Instructions:
Discharge Diagnosis/Procedures Atrial tachycardia, Sotalol loading
Diet Regular
Activity As tolerated
Driving Restrictions As prior to admission
Bathing Restrictions OK to Shower
Instructions:
Stand-Alone Forms:
Changes to Home Medications: Yes
Discharge Medications:
DC Medications w/original date entered in [employer]
aspirin 81 mg tablet 81 mg PO DAILY 01/28/25
atorvastatin 20 mg tablet 20 mg PO DAILY 01/28/25
bupropion HCl 150 mg 24 hr tablet, extended release (Wellbutrin XL) 150 mg PO DAILY 01/28/25
estradiol 0.05 mg/24 hr weekly transdermal patch 1 patch transdermal WHITE 01/28/25
multivitamin 1 tab PO DAILY 01/28/25
cholecalciferol (vitamin D3) 50 mcg (2,000 unit) tablet 50 mcg PO DAILY 02/02/25
progesterone micronized 200 mg capsule 200 mg PO HS 02/02/25
diltiazem HCl 30 mg tablet 30 mg PO BID PRN tachycardia #60 tabs 03/20/25
sotalol 80 mg tablet 80 mg PO BID #60 tabs 03/20/25
Home Medication Changes
Sotalol is new
diltiazem now PRN
Pending Results: No
== END 2025-03-20 15:28 | disposition home or self-care (01) | DRG 310 ==
LOC: 3 WEST ACU 09:00
PROVIDERS: Physician Assistant Medical; ADMITTING PHYSICIAN Nuclear Medicine Nuclear Cardiology; FAMILY PHYSICIAN Internal Medicine
DX: I47.19 Other supraventricular tachycardia (principal); I10 Essential (primary) hypertension; E78.5 Hyperlipidemia, unspecified; Z79.82 Long term (current) use of aspirin
CPT/HCPCS: 80048; 80053; 83735; 85027; 93005